=== PATIENT | male | born 1980 | race American Indian/Alaskan Native ===

== ENCOUNTER 2021-08-09 11:22 | Emergency (ER) | payer SELFPAY ==
[2021-08-09 12:25] VITALS: BP 160/109
--- NOTE | 2021-08-09 16:29 | Emergency Department Report ---
ED General Adult HPI - General Chief complaint: Skin/Abscess/Foreign Body Stated complaint: CYST ON BUTTOCK Time Seen by Provider: 08/09/21 15:34 Source: patient Mode of arrival: Ambulatory Limitations: No Limitations - History of Present Illness Initial comments: The patient is a pleasant 40-year-old gentleman, who presents to the ER today with a complaint of painless cyst on his left buttock. He denies additional injuries and complaints. He has been experiencing this cyst intermittently over the past 4 years. While he lived in [place], it was incised and drained. He denies additional injuries and complaints. He reports that the cyst has recurred on his left buttock over the past few days to week and a half -: days(s), week(s), month(s), year(s) Location: buttocks, left Improves with: none Worsens with: none Associated Symptoms: denies other symptoms - Related Data Home Medications Medication Instructions Recorded Confirmed Last Taken No Known Home Medications [No 08/09/21 08/09/21 Unknown Reported Home Medications] Allergies Allergy/AdvReac Type Severity Reaction Status Date / Time No Known Allergies Allergy Verified 08/09/21 12:22 ED Review of Systems ROS: Stated complaint: CYST ON BUTTOCK Other details as noted in HPI Comment: All other systems reviewed and negative Skin: as per HPI, other (Painless cyst on left buttock) ED Past Medical Hx - Medications Home Medications: Home Medications Medication Instructions Recorded Confirmed Last Taken Type No Known Home Medications [No 08/09/21 08/09/21 Unknown History Reported Home Medications] ED Physical Exam - General Limitations: No Limitations General appearance: alert, in no apparent distress - Head Head exam: Present: atraumatic, normocephalic - Eye Eye exam: Present: normal appearance, EOMI. Absent: nystagmus - ENT ENT exam: Present: normal exam, normal orophraynx, mucous membranes moist, normal external ear exam - Neck Neck exam: Present: normal inspection, full ROM. Absent: tenderness, meningismus - Respiratory Respiratory exam: Present: normal lung sounds bilaterally. Absent: respiratory distress, wheezes, rales, rhonchi, stridor, decreased breath sounds - Cardiovascular Cardiovascular Exam: Present: regular rate, normal rhythm, normal heart sounds. Absent: bradycardia, tachycardia, irregular rhythm, systolic murmur, diastolic murmur, rubs, gallop - GI/Abdominal GI/Abdominal exam: Present: soft. Absent: distended, tenderness, guarding, rebound, rigid, pulsatile mass - Rectal Rectal exam: Present: normal inspection (On the left superior medial quadrant of the gluteus, there is a nontender cyst noted, without pus, purulence, streaking, crepitus, or induration. It is well-circumscribed.), other (Patient provides verbal consent for external gluteal examination, while informatics pharmacist A Almita is present) - Extremities Exam Extremities exam: Present: normal inspection, full ROM, other (2+ pulses noted in the bilateral upper and lower extremities. There is no palpable cord. negative Homans sign. Muscular compartments are soft. The pelvis is stable.). Absent: pedal edema, calf tenderness - Back Exam Back exam: Present: normal inspection, full ROM. Absent: tenderness, CVA tenderness (R), CVA tenderness (L), paraspinal tenderness, vertebral tenderness - Neurological Exam Neurological exam: Present: alert, oriented X3, normal gait, other (No facial droop. Tongue midline. Extraocular movements intact bilaterally. Facial sensa tion intact to light touch in V1, V2, V3 distribution bilaterally. 5 and a 5 strength in 4 extremities. Sensation intact to light touch in 4 extremities.). Absent: motor sensory deficit - Psychiatric Psychiatric exam: Present: normal affect, normal mood - Skin Skin exam: Present: warm, dry, intact, normal color. Absent: rash ED Course Vital Signs 08/09/21 12:22 Temperature 98.6 F Pulse Rate 81 Respiratory 16 Rate Blood Pressure 160/109 [Left] O2 Sat by Pulse 97 Oximetry ED Medical Decision Making - Lab Data Vital Signs 08/09/21 12:22 Temperature 98.6 F Pulse Rate 81 Respiratory 16 Rate Blood Pressure 160/109 [Left] O2 Sat by Pulse 97 Oximetry - Medical Decision Making Differential diagnosis, including but not limited to: Gluteal cyst, elevated blood pressure, encounter for medical screening examination Assessment and plan: 40-year-old gentleman, who was afebrile, with reassuring vital signs with exception of elevated blood pressure (please reference the [employer] clinical policy on asymptomatic hypertension), resenting to the ER with a complaint of painless left gluteal cyst. The cyst does not appear to be infected. The cyst is nontender. Patient counseled that he does not appear to have an emergent medical condition present at this time. The patient may follow-up electively as an outpatient with a primary care doctor for blood pressure recheck, and follow-up with a family medicine doctor, surgeon, or boom supervisor for elective gluteal cyst removal. Return precautions reviewed. Critical care attestation.: If time is entered above; I have spent that time in minutes in the direct care of this critically ill patient, excluding procedure time. ED Disposition Clinical Impression: Cyst, Elevated blood pressure reading, Encounter for medical screening examination Disposition: HOME / SELF CARE / HOMELESS Is pt being admited?: No Does the pt Need Aspirin: No Condition: Good Additional Instructions: The patient is not found to have an emergency medical condition while present on the emergency room today. Recommend follow-up with the primary care doctor within the next month for repeat checkup and evaluation, and repeat blood pressure checkup. Patient may follow-up with the family medicine physician, general surgeon, plastic surgeon, or boom supervisor for elective gluteal cyst removal. Dr. Mcqueen is a local surgeon/plastic surgeon. Patient should google/look online for resources for local market risk specialist, where he may consult his private insurance provider. [facility] is a local medical clinic. Please return to the emergency room right away with new pain, worsened pain, migration of pain, projectile vomiting, change in mental status, confusion, inability tolerate liquid feeds, new, worsened or different symptoms not present on the initial emergency room evaluation Referrals: NAT MCQUEEN MD [Staff Physician] - 3-5 Days [facility] [place] [Provider Group] - 3-5 Days Forms: Work/School Release Form(ED)
== END 2021-08-09 16:48 | disposition home or self-care (01) ==
LOC: ED 11:22
DX: R03.0 Elevated blood-pressure reading, without diagnosis of hypertension (principal); L02.31 Cutaneous abscess of buttock; Z00.00 Encounter for general adult medical examination without abnormal findings
CPT/HCPCS: 99282